=== PATIENT | female | born 1980 | race Caucasian/White ===

== ENCOUNTER 2016-12-02 14:45 | Day surgery (SDC) | payer OTHER ==
[2016-12-02] VITALS (10 sets, daily range): BP systolic 102–122; BP diastolic 69–77; PULSE 80–95; RESP 16–20; Ht 154.9 cm; Wt 100.7 kg
[~2016-12-02] VITALS: Ht 154.9 cm; Wt 100.7 kg
[~2016-12-02 14:45] MED LIST: BUPIVACAINE 0.5% (MPF) 30 ML INJ EPI ONE; LACTATED RINGER'S 1,000 ML IV* SCH
[2016-12-02] MEDS ORDERED: DOCU-144 PO (15:04)
[2016-12-02] MEDS ORDERED: MOME13HF INHALATION (15:05)
[2016-12-02] MEDS ORDERED: MONT10TA21 PO (15:06)
[2016-12-02] MEDS ORDERED: ALBU18HF INHALATION (15:06)
[2016-12-02] MEDS ORDERED: PANT40TA3 PO (15:07)
[2016-12-02] MEDS ORDERED: SERT25TA PO (15:07)
[2016-12-02] MEDS ORDERED: FLUT16SP17 NASAL (15:08)
[2016-12-02] MEDS ORDERED: LORA10TA3 PO (15:08)
[2016-12-02] MEDS ORDERED: HYDR-905 PO (15:09)
--- NOTE | 2016-12-02 15:32 | HPN ---
Date/Time of Note Date/Time of Note DATE: 12/02/16 TIME: 15:32 Interval H&P Admission Note Pt. seen H&P reviewed: No system changes KATHE IBARRA December 02, 2016 15:32
[2016-12-02] MEDS ORDERED: BUPIVACAINE 0.5% (SDV) 30 ML INJ ONE (16:44)
[2016-12-02] MEDS ORDERED: POLYMYXIN/BACITRACIN 1L IRRIG ONE (16:44)
[2016-12-02] MEDS ORDERED: PROPOFOL 20 ML ONE ×2 (16:57→17:52)
[2016-12-02] MEDS ORDERED: FENTAnyl 50 MCG/ML VIAL ONE ×3 (16:57→17:34)
[2016-12-02] MEDS ORDERED: CEFAZOLIN 1 GM INJ ONE (16:57)
[2016-12-02] MEDS ORDERED: MIDAZOLAM 1 MG/ML 2 ML INJ ONE (17:03)
[2016-12-02] MEDS ORDERED: KETOROLAC 30 MG INJ ONE (17:10)
[2016-12-02] MEDS ORDERED: ONDANSETRON 4 MG INJ ONE (17:10)
[2016-12-02] MEDS ORDERED: DEXAMETHASONE 4 MG/ML 1 ML INJ ONE (17:10)
[2016-12-02] MEDS ORDERED: METOCLOPRAMIDE 10 MG INJ ONE (17:10)
[2016-12-02] MEDS ORDERED: ACETAMINOPHEN 1000MG/100ML IV 100 ML ONE (17:36)
[2016-12-02] MEDS ORDERED: PROPOFOL 40 ML ONE (17:37)
[2016-12-02] MEDS ORDERED: SUCCINYLCHOLINE CHLORIDE 100 MG/5 ML SYG IV ONE (17:45)
[2016-12-02] MEDS ORDERED: EPHEDrine SULFATE 50 MG/5 ML SYG IV PRN (18:00)
[2016-12-02] MEDS ORDERED: HYDROmorphONE (0.2 MG/ML) 10ML SYG IV PRN ×3 (18:00)
[2016-12-02] MEDS ORDERED: DIPHENHYDRAMINE 50 MG INJ IV PRN (18:00)
[2016-12-02] MEDS ORDERED: MEPERIDINE 25 MG INJ IV PRN (18:00)
[2016-12-02] MEDS ORDERED: FENTAnyl 50 MCG/ML VIAL IV PRN ×3 (18:00)
[2016-12-02] MEDS ORDERED: morphine (1 MG/ML) 10ML SYRINGE IV PRN ×3 (18:00)
[2016-12-02] MEDS ORDERED: OXYCODONE/ACETAMINOPHEN (5/325) TAB PO PRN ×2 (18:00)
[2016-12-02] MEDS ORDERED: LABETALOL HCL 20MG INJ IV PRN (18:00)
[2016-12-02] MEDS ORDERED: METOCLOPRAMIDE 10 MG INJ IV PRN (18:00)
[2016-12-02] MEDS ORDERED: ONDANSETRON 4 MG INJ IV PRN (18:00)
--- NOTE | 2016-12-02 22:32 | OPR ---
DATE OF OPERATION: 12/02/2016 SURGEON: Kathe Navarro MD ANESTHESIA: General plus local. PREOPERATIVE DIAGNOSIS: Right thumb metacarpal base fracture, intraarticular, Fontana type. POSTOPERATIVE DIAGNOSIS: Right thumb metacarpal base fracture, intraarticular, Fontana type. OPERATION PERFORMED: Open reduction internal fixation right thumb metacarpal base, intra-articular fracture. OPERATIVE FINDINGS: Comminuted, intraarticular metacarpal base fracture. INDICATION FOR PROCEDURE: A 36-year-old female with a right thumb injury. She was seen in clinic a nd diagnosed with the metacarpal base fracture of the thumb, which was intra-articular and displaced . We discussed the options and she elected to proceed with surgical intervention, understanding the risks and benefits. DESCRIPTION OF PROCEDURE: The patient was seen in the preoperative area and all further questions w ere answered. Again, she gave informed consent, understanding risks and benefits. She was taken to operative suite and placed in supine position. She was placed under general anesthesia and 2 grams of Ancef was given. Right upper extremity was prepped with ChloraPrep stick and draped in the usua l sterile fashion. Esmarch bandage was used to exsanguinate the extremity and tourniquet inflated t o 250 mmHg. After I was unable to secure the fracture fragments in a closed manner, decision was ma de to open and do an open reduction internal fixation. A dorsal radial incision was made over the b ase of the thumb metacarpal and sharp dissection carried down through skin and subcutaneous tissue. The sensory nerves were protected and the EPB, APL, and thenar musculature were identified. Knife dissection elevated the thenar musculature off of the base of the metacarpal and the metacarpal base was visualized. A dorsal capsulotomy was made and the fracture fragment was identified. There was a second fracture fragment radially with comminution. This fracture was unstable and was secured t o the shaft with a 0.045 K-wire. The thumb was then placed under traction and pronation and a 0.045 K-wire was driven from the thumb metacarpal to the index metacarpal securing the thumb in a more ap propriate position with the fracture fragments more anatomically aligned. X-ray imaging confirmed n ear anatomic alignment and appropriate hardware position. The fracture was stable and pins were cut short and pin caps placed. A 4-0 nylon was used to close the wound followed by Xeroform, sterile g auze, Webril, and a short arm thumb spica splint. Tourniquet was deflated after 43 minutes and corey ent was awakened from anesthesia. She was taken the postoperative suite in stable condition and debra erated procedure well without complication. SPECIMENS: None. ESTIMATED BLOOD LOSS: 5 mL. COUNTS: Sponge, instrument, and needle counts correct. TOURNIQUET TIME: 43 minutes. FLUOROSCOPIC IMAGES: 38. CONDITION ON DISCHARGE: Stable. Dictated By: KATHE MESSINA/SUJEY Conf#: [id number] DID#: [id number]
--- NOTE | 2016-12-03 11:37 | RADRPT ---
PROCEDURE: Intraoperative imaging of the right thumb with fluoroscopy. CLINICAL INDICATION: Right thumb pain. Fracture. Intraoperative. TECHNIQUE: 40 images of the right were obtained in the operating room with an image intensifier. No radiologist was in attendance. 1.37 minutes of fluoroscopy time was used. COMPARISON: No prior study is available for comparison. FINDINGS: Images demonstrate open reduction and internal fixation of the fracture of the base of the right fir st metacarpal with 2 pins. IMPRESSION: 1. Intraoperative imaging of the right. RPTAT: QQ .Kurt Alicea MD, MD Date Time Electronically viewed and signed by .Kurt Alicea MD, on 12/03/2016 11:37 .R/
== END 2016-12-02 19:34 | disposition home or self-care (01) ==
LOC: SDS 14:45
PROVIDERS: ATTEND Orthopaedic Surgery Hand Surgery
DX: S62.211A Bennett's fracture, right hand, initial encounter for closed fracture (principal); X58.XXXA Exposure to other specified factors, initial encounter; Y92.89 Other specified places as the place of occurrence of the external cause; J45.909 Unspecified asthma, uncomplicated; E66.9 Obesity, unspecified; Z68.41 Body mass index [BMI] 40.0-44.9, adult
CPT/HCPCS: 26615; 73140; J0131; J0690; J1100; J1885; J2250; J2405; J2765; J3010; J7999; Z7512; Z7610